=== PATIENT | female | born 1955 | race Caucasian/White ===

== ENCOUNTER 2016-11-16 22:58 | Emergency (ER) | payer MEDICAID ==
[~2016-11-16] VITALS: Ht 162.6 cm; Wt 54.4 kg
[2016-11-17 00:28] VITALS: BP 127/76
[2016-11-17 00:30] VITALS: BP 127/76
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
--- NOTE | 2016-11-24 12:58 | Diagnostic Imaging Report ---
Indication: TRAUMA Technique: 3 views of the lumbar spine Comparison: None Findings:Bony alignment is normal. Vertebral body heights are preserved. There is degenerative disc narrowing at T12-L1, minimally at L1-2 and L2-3. The pedicles are intact. Sacral arches are preserved. Sacroiliac joint spaces are preserved. Extra spinal soft tissues are unremarkable Impression:No acute bony trauma Mild degenerative changes, as described
== END 2016-11-17 00:30 | disposition home or self-care (01) ==
LOC: EDBD 22:58 → EMR 23:16
DX: M54.5 Low back pain (principal); Z88.0 Allergy status to penicillin; Z86.59 Personal history of other mental and behavioral disorders
CPT/HCPCS: 72020; 99283